=== PATIENT | female | born 1980 | race Two or more races ===

== ENCOUNTER 2019-10-28 16:43 | Inpatient (IN) | payer OTHER ==
--- NOTE | 2019-10-28 17:12 | PDOC ---
Rapid Medical Evaluation Medical Evaluation: Allergies Allergy/AdvReac Type Severity Reaction Status Date / Time No Known Allergies Allergy Verified 03/01/14 07:16 Vital Signs Temp Pulse Resp BP Pulse Ox 98 F 85 20 113/102 H 100 10/28/19 16:44 10/28/19 16:44 10/28/19 16:44 10/28/19 16:44 10/28/19 16:44 10/28/19 16:52 HPI: The patient is a 39 year old female with no pmhx presents with c/o of generalized chest and upper back pain x 3 days. States has associated generalized body pain. Chest pain is 6/10, worse on the right side with taking a breath. She has been taking antibx (not prescribed), which she bought at the store and took advil lost does at 3 pm without relief of symptoms. Denies exposure to suspected, or confirmed] COVID-19. Denies symptoms of fever, chills, dry cough, SOB, anorexia, or diarrhea, nausea, vomiting. Has not eaten today due to the pain. Famx hx neg for CVA/[place]/PE/DVT. ROS: (+) chest pain, (-) difficulty breathing, (-) shortness of breath, (-) lightheadedness, (-) dizziness, (-) nausea, (-) vomiting and diarrhea. Other 12 point ROS reviewed and negative. Exam: General: NAD, Well-Appearing, Awake, Alert Oriented x3. Vital signs stable. ENT: No rhinorrhea or nasal congestion. Neck: FROM, no midline tenderness. Lungs: Clear to auscultation bilaterally without wheezes, rhonchi or rales. Normal excursion. Patient is able to speak in full sentences. Heart: HR: Regular rhythm, S1-S2 present, no murmurs rubs or gallops. Abdomen: Non-distended, (+) RUQ tenderness MSK/Extremities: No decrease ROM, No obvious deformities. No obvious cyanosis noted. Neuro: Normal Gait, Cranial Nerves II through XII Grossly Intact. Skin: No obvious rashes, bruising. Color Normal Appearing. Assessment/Plan: The patient is a 39 year old female with no pmhx presents with c/o of generalized chest and upper back pain x 3 days. States has associated generalized body pain, with no known COVID exposure. Patient does not meet testing criteria at this time. R/O pneumonia, RUQ tenderness r/o cholelithiasis labs, ekg, cxr poss US if indicated percocet for pain reassess vertical for further eval
[2019-10-28 17:28] VITALS: BMI 29.5
[2019-10-28 18:00] LABS: HEMATOCRIT 41.9 % (32.4-45.2); MCH 29.5 pg (25.7-33.7); MCHC 33.5 g/dl (32.0-36.0); MEAN PLT VOLUME 9.3 fl (7.5-11.1); PLATELET COUNT 226 K/MM3 (134-434); RBC 4.76 M/mm3 (3.60-5.2); RDW 13.2 % (11.6-15.6); WHITE BLOOD COUNT 10.9 K/mm3 (4.0-10.0)
--- NOTE | 2019-10-28 18:05 | PDOC ---
History of Present Illness - General Chief Complaint: Pain Stated Complaint: SOB - History of Present Illness Initial Comments: 10/28/19 18:05 The patient is a 39 year old female with no pmhx presents with c/o of generalized chest and upper back pain x 3 days. States has associated generalized body pain. Chest pain is 6/10, worse on the right side with taking a breath. She has been taking antibx (not prescribed), which she bought at the store and took advil lost does at 3 pm without relief of symptoms. Denies exposure to suspected, or confirmed] COVID-19. Denies symptoms of fever, chills, dry cough, SOB, anorexia, or diarrhea, nausea, vomiting. Has not eaten today due to the pain. Famx hx neg for CVA/CO/PE/DVT. ROS: (+) chest pain, (-) difficulty breathing, (-) shortness of breath, (-) lightheadedness, (-) dizziness, (-) nausea, (-) vomiting and diarrhea. Other 12 point ROS reviewed and negative. Exam: General: NAD, Well-Appearing, Awake, Alert Oriented x3. Vital signs stable. ENT: No rhinorrhea or nasal congestion. Neck: FROM, no midline tenderness. Lungs: Clear to auscultation bilaterally without wheezes, rhonchi or rales. Normal excursion. Patient is able to speak in full sentences. Heart: HR: Regular rhythm, S1-S2 present, no murmurs rubs or gallops. Abdomen: Non-distended, (+) RUQ tenderness MSK/Extremities: No decrease ROM, No obvious deformities. No obvious cyanosis noted. Neuro: Normal Gait, Cranial Nerves II through XII Grossly Intact. Skin: No obvious rashes, bruising. Color Normal Appearing. Past History - Past Medical History Allergies/Adverse Reactions: Allergies Allergy/AdvReac Type Severity Reaction Status Date / Time No Known Allergies Allergy Verified 03/01/14 07:16 Home Medications: Ambulatory Orders Vitamins (Sjr) - 1 tab PO DAILY 09/23/14 Acetaminophen [Tylenol .Regular Strength -] 650 mg PO Q4H PRN #20 tablet 09/28/14 Ibuprofen [Motrin -] 600 mg PO Q4H PRN #20 tablet 09/28/14 Asthma: No Cancer: No Cardiac Disorders: No Diabetes: No HTN: No Seizures: No Thyroid Disease: No - Reproductive History (#): 2 Para: 1 - Psycho Social/Smoking Cessation Hx Smoking History: Never smoked Have you smoked in the past 12 months: No Hx Alcohol Use: No Drug/Substance Use Hx: No Substance Use Type: None Hx Substance Use Treatment: No *Physical Exam - Vital Signs Last Vital Signs Temp Pulse Resp BP Pulse Ox 98.0 F 85 18 113/102 H 100 10/28/19 17:23 10/28/19 17:23 10/28/19 17:23 10/28/19 17:23 10/28/19 17:23 ED Treatment Course - LABORATORY CBC & Chemistry Diagram: 10/28/19 17:17 10/28/19 17:19 - ADDITIONAL ORDERS Additional order review: 10/28/19 17:17 RBC 4.76 MCV 88.0 MCHC 33.5 RDW 13.2 D MPV 9.3 - RADIOLOGY Radiology Studies Ordered: Category Date Time Status CHEST X-RAY PORTABLE* [RAD] Stat Radiology 10/28/19 16:54 Ordered Medical Decision Making - Medical Decision Making 10/28/19 18:05 Assessment/Plan: The patient is a 39 year old female with no pmhx presents with c/o of generalized chest and upper back pain x 3 days. States has associated generalized body pain, with no known COVID exposure. Patient does not meet testing criteria at this time. R/O pneumonia, RUQ tenderness r/o cholelithiasis labs, ekg, cxr poss US if indicated percocet for pain reassess EKG: SR rate 72, LAD, LVH, (-) ST-T wave changes POCUS GB show (+) stone and sludge, nl GB wall 10/28/19 19:16 Laboratory Tests 10/28/19 10/28/19 17:17 17:19 WBC 10.9 H Hgb 14.0 Hct 41.9 Plt Count 226 D Sodium 139 Potassium 4.0 Chloride 104 Carbon Dioxide 27 Anion Gap 8 BUN 12.2 Creatinine 0.7 Est GFR (CKD-EPI)NonAf 108.38 Random Glucose 117 H Total Bilirubin 0.9 AST 207 H ALT 167 H Alkaline Phosphatase 138 H Lipase 157 Beta HCG, Quant < 1.0 patient sent for official US. Case d/w Dr. Maya will see the patient in AM. 10/28/19 20:06 US reported Gall stone with mild GB wall thicking Discharge - Discharge Information Problems reviewed: Yes Clinical Impression/Diagnosis: Abdominal pain Qualifiers: Abdominal location: right upper quadrant Qualified Code(s): R10.11 - Right upper quadrant pain Cholelithiasis Qualifiers: Cholelithiasis location: gallbladder and bile duct Cholecystitis presence: without cholecystitis Biliary obstruction: with biliary obstruction Qualified Code(s): K80.71 - Calculus of gallbladder and bile duct without cholecystitis with obstruction - Admission Yes - Follow up/Referral - Patient Discharge Instructions - Post Discharge Activity
[2019-10-28 18:31] LABS: ALBUMIN 3.9 g/dl (3.4-5.0); ALK PHOS 138 U/L (45-117); ANION GAP 8 MMOL/L (8-16); BILIRUBIN,TOTAL 0.9 mg/dL (0.2-1); BLOOD UREA NITROGEN 12.2 mg/dL (7-18); CALCIUM 9.1 mg/dL (8.5-10.1); CHLORIDE 104 mmol/L (98-107); CO2 27 mmol/L (21-32); CREATININE 0.7 mg/dL (0.55-1.3); GLUCOSE,RANDOM 117 mg/dL (74-106); LIPASE 157 U/L (73-393); SGOT/AST 207 U/L (15-37); SGPT/ALT 167 U/L (13-61); SODIUM 139 mmol/L (136-145); TOT PROT 7.8 g/dl (6.4-8.2)
--- NOTE | 2019-10-28 19:19 | PDOC ---
*Physical Exam - Vital Signs Last Vital Signs Temp Pulse Resp BP Pulse Ox 98.0 F 85 18 113/102 H 100 10/28/19 17:23 10/28/19 17:23 10/28/19 17:23 10/28/19 17:23 10/28/19 17:23 - Physical Exam 10/28/19 19:14 awake alert lungs clear bilat heart rrr no mrg abd soft mild ruq ttp. neg ocampo's no rebound no guarding. no flank tendernees. ext wwp. General Appearance: Yes: Appropriately Dressed ED Treatment Course - LABORATORY CBC & Chemistry Diagram: 10/28/19 17:17 10/28/19 17:19 - ADDITIONAL ORDERS Additional order review: Laboratory Results 10/28/19 17:19 Sodium 139 Potassium 4.0 Chloride 104 Carbon Dioxide 27 Anion Gap 8 BUN 12.2 Creatinine 0.7 Est GFR (CKD-EPI)AfAm 125.61 Est GFR (CKD-EPI)NonAf 108.38 Random Glucose 117 H Calcium 9.1 Total Bilirubin 0.9 AST 207 H ALT 167 H Alkaline Phosphatase 138 H Total Protein 7.8 Albumin 3.9 Lipase 157 Beta HCG, Quant < 1.0 10/28/19 17:17 RBC 4.76 MCV 88.0 MCHC 33.5 RDW 13.2 D MPV 9.3 - Medications Given in the ED: ED Medications Discontinued Medications Generic Name Dose Route Start Last Admin Trade Name Freq PRN Reason Stop Dose Admin Oxycodone/Acetaminophen 1 combo 10/28/19 18:00 10/28/19 18:26 Percocet 5/325 - PO 10/28/19 18:01 1 combo ONCE ONE Administration Medical Decision Making - Medical Decision Making 10/28/19 19:15 39 yo F here with ruq pain. pain worse with eating. now constant. no n/v no fever or chills. on my exam pt ttp ruq. pt seen and examined with CESILIA Benites, agree with plan focused ED us ruq performed. dilated CBD noted 4.5 upper limits normal pt age. noted stones, one in neck. nonmobile. small polyp noted anterior gallbladder wall. no pericholecystic fluid. neg sonographic's ocampo impression: cholelithiasis with dilated CBD, small anterior polyp noted. d/w dr fong surgeon, will see patient in hospital. consult placed. Discharge - Discharge Information Problems reviewed: Yes Clinical Impression/Diagnosis: Cholelithiasis - Admission Yes - Follow up/Referral - Patient Discharge Instructions - Post Discharge Activity
--- NOTE | 2019-10-28 19:39 | HP ---
CHIEF COMPLAINT:abd pain PCP:none HISTORY OF PRESENT ILLNESS: patient is a 39 year old female with no pmhx presents with c/o of generalized chest and upper back pain x 3 days. States has associated generalized body pain. Chest pain is 6/10, worse on the right side with taking a breath. She has been taking antibx (not prescribed), which she bought at the store and took advil lost does at 3 pm without relief of symptoms. Denies exposure to suspected, or confirmed] COVID-19. Denies symptoms of fever, chills, dry cough, SOB, anorexia, or diarrhea, nausea, vomiting. Has not eaten today due to the pain. pt is comoran speaking pt currently denies pain, reports "pain medicine helped" ER course was notable for: (1) AST/ALT 207/167 (2) WBC 10.9 (3) US CBD Recent Travel: PAST MEDICAL HISTORY: none PAST SURGICAL HISTORY: Family History: Fam hx neg for CVA/[place]/PE/DVT. Social History: Smoking:denies Alcohol:denies Drugs: denies Allergies No Known Allergies Allergy (Verified 03/01/14 07:16) HOME MEDICATIONS: Home Medications Medication Instructions Recorded Vitamins (Sjr) - 1 tab PO DAILY 09/23/14 Acetaminophen [Tylenol .Regular 650 mg PO Q4H PRN #20 tablet 09/28/14 Strength -] Ibuprofen [Motrin -] 600 mg PO Q4H PRN #20 tablet 09/28/14 REVIEW OF SYSTEMS CONSTITUTIONAL: Absent: fever, chills, diaphoresis, generalized weakness, malaise, loss of appetite, weight change HEENT: Absent: rhinorrhea, nasal congestion, throat pain, throat swelling, difficulty swallowing, mouth swelling, ear pain, eye pain, visual changes CARDIOVASCULAR: Absent: chest pain, syncope, palpitations, irregular heart rate, lightheadedness, peripheral edema RESPIRATORY: Absent: cough, shortness of breath, dyspnea with exertion, orthopnea, wheezing, stridor, hemoptysis GASTROINTESTINAL: +Abd pain, Absent: abdominal distension, nausea, vomiting, diarrhea, constipation, melena, hematochezia GENITOURINARY: Absent: dysuria, frequency, urgency, hesitancy, hematuria, flank pain, genital pain MUSCULOSKELETAL: Absent: myalgia, arthralgia, joint swelling, back pain, neck pain SKIN: Absent: rash, itching, pallor HEMATOLOGIC/IMMUNOLOGIC: Absent: easy bleeding, easy bruising, lymphadenopathy, frequent infections ENDOCRINE: Absent: unexplained weight gain, unexplained weight loss, heat intolerance, cold intolerance NEUROLOGIC: Absent: headache, focal weakness or paresthesias, dizziness, unsteady gait, seizure, mental status changes, bladder or bowel incontinence PSYCHIATRIC: Absent: anxiety, depression, suicidal or homicidal ideation, hallucinations. PHYSICAL EXAMINATION Vital Signs - 24 hr 10/28/19 10/28/19 16:44 17:23 Temperature 98 F 98.0 F Pulse Rate 85 85 Respiratory 20 18 Rate Blood Pressure 113/102 H 113/102 H O2 Sat by Pulse 100 100 Oximetry (%) GENERAL: Awake, alert, and fully oriented, in no acute distress. HEAD: Normal with no signs of trauma. EYES: Pupils equal, round and reactive to light, extraocular movements intact, sclera anicteric, conjunctiva clear. No lid lag. EARS, NOSE, THROAT: Ears normal, nares patent, oropharynx clear without exudates. Moist mucous membranes. NECK: Normal range of motion, supple without lymphadenopathy, JVD, or masses. LUNGS: Breath sounds equal, clear to auscultation bilaterally. No wheezes, and no crackles. No accessory muscle use. HEART: Regular rate and rhythm, normal S1 and S2 without murmur, rub or gallop. ABDOMEN: Soft, nontender, not distended, normoactive bowel sounds, no guarding, no rebound, no masses. No hepatomegaly or splenomegaly. MUSCULOSKELETAL: Normal range of motion at all joints. No bony deformities or tenderness. No CVA tenderness. UPPER EXTREMITIES: 2+ pulses, warm, well-perfused. No cyanosis. No clubbing. No peripheral edema. LOWER EXTREMITIES: 2+ pulses, warm, well-perfused. No calf tenderness. No peripheral edema. NEUROLOGICAL: Cranial nerves II-XII intact. Normal speech. Normal gait. PSYCHIATRIC: Cooperative. Good eye contact. Appropriate mood and affect. SKIN: Warm, dry, normal turgor, no rashes or lesions noted, normal capillary refill. Laboratory Results - last 24 hr 10/28/19 10/28/19 17:17 17:19 WBC 10.9 H RBC 4.76 Hgb 14.0 Hct 41.9 MCV 88.0 MCH 29.5 MCHC 33.5 RDW 13.2 D Plt Count 226 D MPV 9.3 Sodium 139 Potassium 4.0 Chloride 104 Carbon Dioxide 27 Anion Gap 8 BUN 12.2 Creatinine 0.7 Est GFR (CKD-EPI)AfAm 125.61 Est GFR (CKD-EPI)NonAf 108.38 Random Glucose 117 H Calcium 9.1 Total Bilirubin 0.9 AST 207 H ALT 167 H Alkaline Phosphatase 138 H Total Protein 7.8 Albumin 3.9 Lipase 157 Beta HCG, Quant < 1.0 ASSESSMENT/PLAN: Germaine Victor is a 39 year old female with no pmhx presents with c/o of generalized chest and upper back pain x 3 days admitted for Admitting Diagnosis Cholelithiasis #Cholelithiasis -Surgery consult- will see in AM -US abd GB distended with CBD -IVF -pain mgt -NPO midnight -EKG- NSR -no covid exposure- was not swabbed in ED #Transaminitis due CBD -repeat LFT in AM -US abd- fatty liver Full Code Dispo: requires inpatient treatment Visit type - Emergency Visit Emergency Visit: Yes Care time: The patient presented to the Emergency Department on the above date and was hospitalized for further evaluation of their emergent condition. - New Patient This patient is new to me today: Yes Date on this admission: 10/28/19 - Critical Care Critical Care patient: No
[2019-10-29] MEDS: SODIUM CHLORIDE 1,000 ML IV SCH ×4 (02:16→20:00)
[2019-10-29] MEDS ORDERED: oxyCODONE HCL 5 MG TABLET PO PRN ×2 (07:35→15:24)
--- NOTE | 2019-10-29 08:02 | CONSULT ---
- Consultation REQUESTING PROVIDER: CONSULT REQUEST: We have been asked to surgically evaluate this patient for cholelithiasis. PCP:Kasi Velasquez MD HISTORY OF PRESENT ILLNESS: The patient is a 39 yo female who presented to the ER with complaints of generalized pain especially in her upper back/right side. She has abd pain in epigatric/RUQ. She denies fever/chills or SOB. Pt with nausea no emesis, but pain and nausea with eating. She may have been having intermittent pain in the past but was never told that she has gallstones. This episode, the pain was constant and she came to the ER for evaluation of her symptoms. Currently she denies any SOB, CP. PMHx: none PSHx: C section x2 Home Medications Medication Instructions Recorded Vitamins (Sjr) - 1 tab PO DAILY 09/23/14 Acetaminophen [Tylenol .Regular 650 mg PO Q4H PRN #20 tablet 09/28/14 Strength -] Ibuprofen [Motrin -] 600 mg PO Q4H PRN #20 tablet 09/28/14 Allergies Allergy/AdvReac Type Severity Reaction Status Date / Time No Known Allergies Allergy Verified 03/01/14 07:16 REVIEW OF SYSTEMS: CONSTITUTIONAL: Absent: fever, chills Present: malaise CARDIOVASCULAR: Absent: chest pain RESPIRATORY: Absent: cough, shortness of breath GASTROINTESTINAL: Present: abdominal pain with deep inspiration Absent: nausea, vomiting PHYSICAL EXAM: GENERAL: Awake, alert, and fully oriented, in no acute distress. HEAD: Normal with no signs of trauma. EYES: sclera anicteric, conjunctiva clear. LUNGS: Clear to auscultation bilat anteriorly. No wheezes, and no crackles. No accessory muscle use. HEART: Regular rate and rhythm. ABDOMEN: Soft, mild RUQ tender with palpation, not distended LOWER EXTREMITIES: No calf tenderness. No peripheral edema. NEUROLOGICAL: Normal speech, gait not observed. PSYCH: Cooperative. Good eye contact. Appropriate mood and affect. Vital Signs Temperature 98 F 10/29/19 06:00 Pulse Rate 92 H 10/29/19 06:00 Respiratory Rate 18 10/29/19 06:00 Blood Pressure 108/58 L 10/29/19 06:00 O2 Sat by Pulse Oximetry (%) 100 10/29/19 02:14 Lab Results WBC 10.9 K/mm3 (4.0-10.0) H 10/28/19 17:17 RBC 4.76 M/mm3 (3.60-5.2) 10/28/19 17:17 Hgb 14.0 GM/dL (10.7-15.3) 10/28/19 17:17 Hct 41.9 % (32.4-45.2) 10/28/19 17:17 MCV 88.0 fl (80-96) 10/28/19 17:17 MCHC 33.5 g/dl (32.0-36.0) 10/28/19 17:17 RDW 13.2 % (11.6-15.6) D 10/28/19 17:17 Plt Count 226 K/MM3 (134-434) D 10/28/19 17:17 Sodium 139 mmol/L (136-145) 10/28/19 17:19 Potassium 4.0 mmol/L (3.5-5.1) 10/28/19 17:19 Chloride 104 mmol/L (98-107) 10/28/19 17:19 Carbon Dioxide 27 mmol/L (21-32) 10/28/19 17:19 Anion Gap 8 MMOL/L (8-16) 10/28/19 17:19 BUN 12.2 mg/dL (7-18) 10/28/19 17:19 Creatinine 0.7 mg/dL (0.55-1.3) 10/28/19 17:19 Random Glucose 117 mg/dL (74-106) H 10/28/19 17:19 Calcium 9.1 mg/dL (8.5-10.1) 10/28/19 17:19 US: gallstones with 1.5 cm stone near the GB neck Problem List - Problems (1) Cholelithiasis Assessment/Plan: pt with biliary colic and is agreeable to surgery. Can plan for surgery once COVID testing is negative. Continue npo LFTS improved today and would continue to trend IVF while npo Pt seen today by myself and Dr. Maya, will continue to follow the patient and plan for lap mikael on Friday if LFTS improved and COVID negative. Problems reviewed: Yes Code(s): K80.20 - CALCULUS OF GALLBLADDER W/O CHOLECYSTITIS W/O OBSTRUCTION Qualifiers: Cholelithiasis location: gallbladder and bile duct Cholecystitis presence: without cholecystitis Biliary obstruction: with biliary obstruction Qualified Code(s): K80.71 - Calculus of gallbladder and bile duct without cholecystitis with obstruction Visit type - Case Type Case Type: ED Admission - Emergency Emergency Visit: Yes ED Registration Date: 10/28/19 Care time: The patient presented to the Emergency Department on the above date and was hospitalized for further evaluation of their emergent condition. - New patient This patient is new to me today: Yes Date on this admission: 10/29/19 - Critical Care Critical Care patient: No
[2019-10-29 08:05] LABS: HEMATOCRIT 38.3 % (32.4-45.2); HEMOGLOBIN 12.9 GM/dL (10.7-15.3); MCH 29.5 pg (25.7-33.7); MCHC 33.7 g/dl (32.0-36.0); MEAN CELL VOLUME 87.6 fl (80-96); PLATELET COUNT 202 K/MM3 (134-434); RBC 4.37 M/mm3 (3.60-5.2); RDW 13.3 % (11.6-15.6); WHITE BLOOD COUNT 7.3 K/mm3 (4.0-10.0)
[2019-10-29 08:14] LABS: INR 1.11 (0.83-1.09); PROTHROMBIN TIME (PATIENT) 13.1 SEC (9.7-13.0)
[2019-10-29 08:39] LABS: ALBUMIN 3.5 g/dl (3.4-5.0); BILIRUBIN,TOTAL 0.8 mg/dL (0.2-1); BLOOD UREA NITROGEN 11.3 mg/dL (7-18); CALCIUM 8.7 mg/dL (8.5-10.1); CREATININE 0.7 mg/dL (0.55-1.3); MAGNESIUM 2.2 mg/dL (1.8-2.4)
[2019-10-29] MEDS ORDERED: FLU VACCINE QUAD 60 MCG/0.5 ML (MDV 19-20) IM ONE (10:00)
--- NOTE | 2019-10-29 13:07 | EKG ---
Test Reason : Blood Pressure : / mmHG Vent. Rate : 061 BPM Atrial Rate : 061 BPM P-R Int : 168 ms QRS Dur : 094 ms QT Int : 448 ms P-R-T Axes : 011 -12 -01 degrees QTc Int : 450 ms NORMAL SINUS RHYTHM MODERATE VOLTAGE CRITERIA FOR LVH, MAY BE NORMAL VARIANT ABNORMAL ECG Confirmed by KATHRINE PARMAR MD ([id number]) on 10/29/2019 1:07:34 PM Referred By: Confirmed By:KATHRINE PARMAR MD
--- NOTE | 2019-10-29 13:11 | EKG ---
Test Reason : Blood Pressure : / mmHG Vent. Rate : 072 BPM Atrial Rate : 072 BPM P-R Int : 176 ms QRS Dur : 096 ms QT Int : 416 ms P-R-T Axes : 040 -02 013 degrees QTc Int : 455 ms NORMAL SINUS RHYTHM MINIMAL VOLTAGE CRITERIA FOR LVH, MAY BE NORMAL VARIANT NO PREVIOUS ECGS AVAILABLE Confirmed by KATHRINE PARMAR MD ([id number]) on 10/29/2019 1:10:28 PM Referred By: Confirmed By:KATHRINE PARMAR MD
--- NOTE | 2019-10-29 14:38 | PN ---
Teaching Attending Note Name of Resident: Armaan Kramer ATTENDING PHYSICIAN STATEMENT I saw and evaluated the patient. I reviewed the resident's note and discussed the case with the resident. I agree with the resident's findings and plan as documented. SUBJECTIVE: Pt reports pain improved. Seen by surgery. Agreeable to cholecystectomy, plan edel for Friday pending negative COVID test OBJECTIVE: Last Vital Signs Temp Pulse Resp BP Pulse Ox 98 F 92 H 18 108/58 L 98 10/29/19 06:00 10/29/19 06:00 10/29/19 09:00 10/29/19 06:00 10/29/19 09:00 PE: per resident note Labs: reviewed Imaging Reviewed ASSESSMENT AND PLAN: Germaine Victor is a 39 year old female with no pmhx presents with c/o of ge neralized chest and upper back pain x 3 days. Found to have cholelithiasis with borderline cholecystitis. #Symptomatic Cholelithiasis -Agreeable to cholecystectomy, planned for Friday pending negative COVID test -pain control, fluids -AST decreasing -Diet as tolerated DVTppx: pt ambulatory, low risk
--- NOTE | 2019-10-29 15:25 | PN ---
Physical Exam: SUBJECTIVE: Patient seen and examined. Afebrile and asymptomatic. No acute events overnight. Pt reports pain in the RUQ. No BM or urination. OBJECTIVE: Vital Signs Period Temp Pulse Resp BP Sys/[place] Pulse Ox Last 24 Hr 97.6 F-98.0 F 60-92 16-20 108-126/58-102 98-100 GENERAL: The patient is awake, alert, and fully oriented, in mild distress EYES: PERRL, extraocular movements intact, No ptosis. ENT: moist mucous membranes. LUNGS: Breath sounds equal, clear to auscultation bilaterally, no wheezes, no crackles HEART: Regular rate and rhythm, S1, S2 without murmur, rub or gallop. ABDOMEN: soft, RUQ tenderness, guarding+ rebound tenderness+, BS decreased. EXTREMITIES: 2+ pulses, warm, well-perfused, no edema. PSYCH: Normal mood, normal affect. SKIN: Warm, dry, normal turgor, Laboratory Results - last 24 hr 10/28/19 10/28/19 10/29/19 17:17 17:19 06:30 WBC 10.9 H 7.3 RBC 4.76 4.37 Hgb 14.0 12.9 Hct 41.9 38.3 MCV 88.0 87.6 MCH 29.5 29.5 MCHC 33.5 33.7 RDW 13.2 D 13.3 Plt Count 226 D 202 MPV 9.3 9.0 PT with INR INR Sodium 139 Potassium 4.0 Chloride 104 Carbon Dioxide 27 Anion Gap 8 BUN 12.2 Creatinine 0.7 Est GFR (CKD-EPI)AfAm 125.61 Est GFR (CKD-EPI)NonAf 108.38 Random Glucose 117 H Calcium 9.1 Magnesium Total Bilirubin 0.9 AST 207 H ALT 167 H Alkaline Phosphatase 138 H Total Protein 7.8 Albumin 3.9 Lipase 157 Beta HCG, Quant < 1.0 10/29/19 10/29/19 06:30 06:30 WBC RBC Hgb Hct MCV MCH MCHC RDW Plt Count MPV PT with INR 13.10 H INR 1.11 H Sodium 139 Potassium 4.0 Chloride 105 Carbon Dioxide 29 Anion Gap 5 L BUN 11.3 Creatinine 0.7 Est GFR (CKD-EPI)AfAm 125.61 Est GFR (CKD-EPI)NonAf 108.38 Random Glucose 86 Calcium 8.7 Magnesium 2.2 Total Bilirubin 0.8 AST 105 H ALT 167 H Alkaline Phosphatase 125 H Total Protein 7.0 Albumin 3.5 Lipase Beta HCG, Quant Active Medications Generic Name Dose Route Start Last Admin Trade Name Gregorioq PRN Reason Stop Dose Admin Sodium Chloride 1,000 mls @ 75 mls/hr 10/28/19 19:45 10/29/19 02:22 Normal Saline - IV 75 mls/hr ASDIR HEIDY Administration Oxycodone HCl 5 mg 10/29/19 07:35 Roxicodone - PO ONCE PRN PAIN LEVEL 6-10 ASSESSMENT/PLAN: 39 y/o F, with no pmhx presents with c/o of generalized chest, abdominal and upper back pain x 3 days admitted for bilary colic #Biliary colic 2/2 to Cholelithiasis US: gallstones with 1.5 cm stone near the GB neck Surgery consult- appreciate consult- tentative surgery for Friday, upon receiving COVID negative test- pending cont IVF pain mgt- oxy 5 q6 prn NPO midnight Covid swab sent #Transaminitis due CBD repeat LFT in AM US abd- fatty liver vs hepatocellular disease, Gallstone next to GB neck 1.5cm, bedside US showing CBD dilation of 4.5 mm #DVT ppx hold FEN monitor lytes IVF at 75 NPO Dispo: cont IVF, npo, surgery for friday, pending covid test Visit type - Emergency Visit Emergency Visit: Yes ED Registration Date: 10/28/19 Care time: The patient presented to the Emergency Department on the above date and was hospitalized for further evaluation of their emergent condition. - New Patient This patient is new to me today: Yes Date on this admission: 10/29/19 - Critical Care Critical Care patient: No - Discharge Referral Referred to [facility] Med P.C.: No ATTENDING PHYSICIAN STATEMENT I saw and evaluated the patient. I reviewed the resident's note and discussed the case with the resident. I agree with the resident's findings and plan as documented. SUBJECTIVE: OBJECTIVE: ASSESSMENT AND PLAN:
[2019-10-30] MEDS: SODIUM CHLORIDE 1,000 ML IV SCH ×3 (03:35→23:00)
[2019-10-30 06:55] LABS: BASO % 0.3 % (0-2.0); HEMATOCRIT 36.4 % (32.4-45.2); HEMOGLOBIN 12.6 GM/dL (10.7-15.3); LYMPH % 26.3 % (8-40); MCH 30.3 pg (25.7-33.7); MCHC 34.5 g/dl (32.0-36.0); MEAN CELL VOLUME 87.7 fl (80-96); MEAN PLT VOLUME 8.6 fl (7.5-11.1); MONO % 7.1 % (3.8-10.2); NEUT % 63.3 % (42.8-82.8); PLATELET COUNT 184 K/MM3 (134-434); RBC 4.15 M/mm3 (3.60-5.2); RDW 13.2 % (11.6-15.6)
[2019-10-30 07:20] LABS: ALBUMIN 3.3 g/dl (3.4-5.0); BILIRUBIN,DIRECT 0.2 mg/dL (0.0-0.2); BILIRUBIN,TOTAL 0.6 mg/dL (0.2-1); BLOOD UREA NITROGEN 13.9 mg/dL (7-18); CALCIUM 8.4 mg/dL (8.5-10.1); CREATININE 0.7 mg/dL (0.55-1.3); MAGNESIUM 2.1 mg/dL (1.8-2.4); PHOSPHOROUS 3.7 mg/dL (2.5-4.9); POTASSIUM 3.8 mmol/L (3.5-5.1); TOT PROT 6.5 g/dl (6.4-8.2)
--- NOTE | 2019-10-30 10:51 | PN ---
Progress Note (short form) - Note Progress Note: Attending Surgeon Minimal c/o pain VSS AF abdo-soft; minimal if any tenderness; o/w negative IMP: biliary colic; acute cholecystitis PLAN: Clear liquid diet; continue present tx.; lap mikael possible open 11/01/2019 pending negative COVID-19 status; d/w the patient in Latvian. David Maya MD FACS
--- NOTE | 2019-10-30 14:33 | PN ---
Physical Exam: SUBJECTIVE: Patient seen and examined. Asymptomatic and afebrile. No overnight event. Discussed with pt over the cryacom/band salvager about her scheduled surgery for saturday 10/21. OBJECTIVE: Vital Signs Period Temp Pulse Resp BP Sys/Mancilla Pulse Ox Last 24 Hr 97.7 F-98.2 F 61-77 18-20 101-111/49-69 99 GENERAL: The patient is awake, alert, and fully oriented, in mild distress EYES: PERRL, extraocular movements intact, No ptosis. ENT: moist mucous membranes. LUNGS: Breath sounds equal, clear to auscultation bilaterally, no wheezes, no crackles HEART: Regular rate and rhythm, S1, S2 without murmur, rub or gallop. ABDOMEN: soft, RUQ tenderness, guarding+, no rebound tenderness, BS decreased. Improved EXTREMITIES: 2+ pulses, warm, well-perfused, no edema. PSYCH: Normal mood, normal affect. SKIN: Warm, dry, normal turgor, Laboratory Results - last 24 hr 10/29/19 10/30/19 10/30/19 12:30 06:35 06:35 WBC 8.0 RBC 4.15 Hgb 12.6 Hct 36.4 MCV 87.7 MCH 30.3 MCHC 34.5 RDW 13.2 Plt Count 184 MPV 8.6 Absolute Neuts (auto) 5.1 Neutrophils % 63.3 Lymphocytes % 26.3 D Monocytes % 7.1 Eosinophils % 3.0 Basophils % 0.3 Nucleated RBC % 0 Sodium 139 Potassium 3.8 Chloride 107 Carbon Dioxide 25 Anion Gap 6 L BUN 13.9 Creatinine 0.7 Est GFR (CKD-EPI)AfAm 125.61 Est GFR (CKD-EPI)NonAf 108.38 Random Glucose 81 Calcium 8.4 L Phosphorus 3.7 Magnesium 2.1 Total Bilirubin 0.6 Direct Bilirubin 0.2 AST 40 H ALT 106 H Alkaline Phosphatase 104 Total Protein 6.5 Albumin 3.3 L COVID-19 (BLAYNE) Not detected Active Medications Generic Name Dose Route Start Last Admin Trade Name Freq PRN Reason Stop Dose Admin Sodium Chloride 1,000 mls @ 75 mls/hr 10/28/19 19:45 10/30/19 03:35 Normal Saline - IV 75 mls/hr ASDIR HEIDY Administration Oxycodone HCl 5 mg 10/29/19 15:24 Roxicodone - PO Q6H PRN PAIN LEVEL 7 - 10 ASSESSMENT/PLAN: 39 y/o F, with no pmhx presents with c/o of generalized chest, abdominal and upper back pain x 3 days admitted for bilary colic #Biliary colic 2/2 to Cholelithiasis US: gallstones with 1.5 cm stone near the GB neck LFTs improving- stone likely passed Surgery consult- appreciate consult- tentative lap mikael surgery for Friday cont IVF pain mgt- oxy 5 q6 prn NPO midnight 10/31 Clear liquid diet for now Covid negative #Transaminitis due CBD LFTs improving US abd- fatty liver vs hepatocellular disease, Gallstone next to GB neck 1.5cm, bedside US showing CBD dilation of 4.5 mm #DVT ppx hold FEN monitor lytes IVF at 75 clear liquid diet, NPO after midnight on 10/31 Dispo: cont IVF, surgery for friday Visit type - Emergency Visit Emergency Visit: Yes ED Registration Date: 10/28/19 Care time: The patient presented to the Emergency Department on the above date and was hospitalized for further evaluation of their emergent condition. - New Patient This patient is new to me today: Yes Date on this admission: 10/30/19 - Critical Care Critical Care patient: No - Discharge Referral Referred to [facility] Med P.C.: No ATTENDING PHYSICIAN STATEMENT I saw and evaluated the patient. I reviewed the resident's note and discussed the case with the resident. I agree with the resident's findings and plan as documented. SUBJECTIVE: OBJECTIVE: ASSESSMENT AND PLAN:
--- NOTE | 2019-10-30 15:45 | PN ---
Teaching Attending Note Name of Resident: Armaan Kramer ATTENDING PHYSICIAN STATEMENT I saw and evaluated the patient. I reviewed the resident's note and discussed the case with the resident. I agree with the resident's findings and plan as documented. SUBJECTIVE: Minor RUQ pain. No rebound. Start clears. Planned for Friday pending negative COVID test OBJECTIVE: Last Vital Signs Temp Pulse Resp BP Pulse Ox 97.8 F 69 20 105/58 L 99 10/30/19 13:29 10/30/19 13:10/30/19 13:10/30/19 13:10/29/19 21:00 PE: per resident note Labs: reviewed Imaging Reviewed ASSESSMENT AND PLAN: Germaine Victor is a 39 year old female with no pmhx presents with c/o of generalized chest and upper back pain x 3 days. Found to have cholelithiasis with borderline cholecystitis. #Symptomatic Cholelithiasis -Agreeable to cholecystectomy, planned for Friday pending negative COVID test -pain control, fluids -AST decreasing -Clears DVTppx: pt ambulatory, low risk
[2019-10-31] MEDS: SODIUM CHLORIDE 1,000 ML IV SCH ×2 (06:06→21:14)
[2019-10-31 08:25] LABS: BASO % 0.4 % (0-2.0); EOS % 4.2 % (0-4.5); HEMATOCRIT 35.6 % (32.4-45.2); HEMOGLOBIN 12.2 GM/dL (10.7-15.3); LYMPH % 30.6 % (8-40); MCH 29.7 pg (25.7-33.7); MCHC 34.1 g/dl (32.0-36.0); MEAN CELL VOLUME 87.2 fl (80-96); MEAN PLT VOLUME 9.3 fl (7.5-11.1); MONO % 8.1 % (3.8-10.2); NEUT % 56.7 % (42.8-82.8); PLATELET COUNT 166 K/MM3 (134-434); RBC 4.09 M/mm3 (3.60-5.2); WHITE BLOOD COUNT 6.8 K/mm3 (4.0-10.0)
[2019-10-31 08:35] LABS: ALBUMIN 3.2 g/dl (3.4-5.0); BILIRUBIN,TOTAL 0.5 mg/dL (0.2-1); BLOOD UREA NITROGEN 9.9 mg/dL (7-18); CALCIUM 8.1 mg/dL (8.5-10.1); CREATININE 0.6 mg/dL (0.55-1.3); MAGNESIUM 2.2 mg/dL (1.8-2.4); PHOSPHOROUS 3.7 mg/dL (2.5-4.9); POTASSIUM 3.8 mmol/L (3.5-5.1); TOT PROT 6.4 g/dl (6.4-8.2)
--- NOTE | 2019-10-31 14:55 | PN ---
Teaching Attending Note Name of Resident: Armaan Kramer ATTENDING PHYSICIAN STATEMENT I saw and evaluated the patient. I reviewed the resident's note and discussed the case with the resident. I agree with the resident's findings and plan as documented. SUBJECTIVE: Tolerating regular diet. NPO after midnight. Planned for OR tomorrow for lap mikael OBJECTIVE: Last Vital Signs Temp Pulse Resp BP Pulse Ox 97.8 F 69 20 113/74 98 10/31/19 08:20 10/31/19 08:20 10/31/19 08:20 10/31/19 08:20 10/30/19 21:00 PE: per resident note Labs: reviewed Imaging Reviewed ASSESSMENT AND PLAN: Germaine Victor is a 39 year old female with no pmhx presents with c/o of generalized chest and upper back pain x 3 days. Found to have cholelithiasis with borderline cholecystitis. #Symptomatic Cholelithiasis -Agreeable to cholecystectomy, planned for Friday pending negative COVID test -pain control, fluids -AST decreasing -Regular diet. NPO after midnight DVTppx: pt ambulatory, low risk
--- NOTE | 2019-10-31 16:55 | PN ---
Physical Exam: SUBJECTIVE: Patient seen and examined. Asymptomatic and afebrile. No overnight event. scheduled surgery for saturday 10/21. OBJECTIVE: Vital Signs Period Temp Pulse Resp BP Sys/Mancilla Pulse Ox Last 24 Hr 97.7 F-98.3 F 63-76 - 103-117/60-74 98 GENERAL: The patient is awake, alert, and fully oriented, in mild distress EYES: PERRL, extraocular movements intact, No ptosis. ENT: moist mucous membranes. LUNGS: Breath sounds equal, clear to auscultation bilaterally, no wheezes, no crackles HEART: Regular rate and rhythm, S1, S2 without murmur, rub or gallop. ABDOMEN: soft, RUQ tenderness, guarding+, no rebound tenderness, BS decreased. Improved EXTREMITIES: 2+ pulses, warm, well-perfused, no edema. PSYCH: Normal mood, normal affect. SKIN: Warm, dry, normal turgor, Laboratory Results - last 24 hr 10/31/19 10/31/19 06:40 06:40 WBC 6.8 RBC 4.09 Hgb 12.2 Hct 35.6 MCV 87.2 MCH 29.7 MCHC 34.1 RDW 13.0 Plt Count 166 MPV 9.3 Absolute Neuts (auto) 3.9 Neutrophils % 56.7 Lymphocytes % 30.6 Monocytes % 8.1 Eosinophils % 4.2 Basophils % 0.4 Nucleated RBC % 0 Sodium 140 Potassium 3.8 Chloride 109 H Carbon Dioxide 25 Anion Gap 6 L BUN 9.9 Creatinine 0.6 Est GFR (CKD-EPI)AfAm 132.14 Est GFR (CKD-EPI)NonAf 114.01 Random Glucose 91 Calcium 8.1 L Phosphorus 3.7 Magnesium 2.2 Total Bilirubin 0.5 AST 22 ALT 74 H Alkaline Phosphatase 91 Total Protein 6.4 Albumin 3.2 L Active Medications Generic Name Dose Route Start Last Admin Trade Name Freq PRN Reason Stop Dose Admin Sodium Chloride 1,000 mls @ 75 mls/hr 10/28/19 19:45 10/31/19 06:06 Normal Saline - IV 75 mls/hr ASDIR HEIDY Administration Oxycodone HCl 5 mg 10/29/19 15:24 Roxicodone - PO Q6H PRN PAIN LEVEL 7 - 10 ASSESSMENT/PLAN: 39 y/o F, with no pmhx presents with c/o of generalized chest, abdominal and upper back pain x 3 days admitted for bilary colic #Biliary colic 2/2 to Cholelithiasis US: gallstones with 1.5 cm stone near the GB neck LFTs improving- stone likely passed Surgery consult- appreciate consult- tentative lap mikael surgery for Friday cont IVF pain mgt- oxy 5 q6 prn NPO midnight 10/31 Clear liquid diet for no Covid negative #Transaminitis due CBD LFTs improving US abd- fatty liver vs hepatocellular disease, Gallstone next to GB neck 1.5cm, bedside US showing CBD dilation of 4.5 mm #DVT ppx hold FEN monitor lytes IVF at 75 clear liquid diet, NPO after midnight on 10/31 Dispo: cont IVF, surgery for friday Visit type - Emergency Visit Emergency Visit: Yes ED Registration Date: 10/28/19 Care time: The patient presented to the Emergency Department on the above date and was hospitalized for further evaluation of their emergent condition. - New Patient This patient is new to me today: Yes Date on this admission: 11/01/19 - Critical Care Critical Care patient: No - Discharge Referral Referred to [facility] Med P.C.: No ATTENDING PHYSICIAN STATEMENT I saw and evaluated the patient. I reviewed the resident's note and discussed the case with the resident. I agree with the resident's findings and plan as documented. SUBJECTIVE: OBJECTIVE: ASSESSMENT AND PLAN:
[2019-11-01 08:11] LABS: HEMATOCRIT 34.7 % (32.4-45.2); HEMOGLOBIN 11.8 GM/dL (10.7-15.3); MCH 29.5 pg (25.7-33.7); MEAN CELL VOLUME 86.9 fl (80-96); MEAN PLT VOLUME 8.9 fl (7.5-11.1); PLATELET COUNT 182 K/MM3 (134-434); RBC 3.99 M/mm3 (3.60-5.2); RDW 13.2 % (11.6-15.6); WHITE BLOOD COUNT 6.1 K/mm3 (4.0-10.0)
[2019-11-01 08:33] LABS: ALBUMIN 3.3 g/dl (3.4-5.0); BILIRUBIN,TOTAL 0.5 mg/dL (0.2-1); BLOOD UREA NITROGEN 9.1 mg/dL (7-18); CALCIUM 7.4 mg/dL (8.5-10.1); CREATININE 0.6 mg/dL (0.55-1.3); MAGNESIUM 2.2 mg/dL (1.8-2.4); PHOSPHOROUS 3.8 mg/dL (2.5-4.9); POTASSIUM 3.9 mmol/L (3.5-5.1); TOT PROT 6.6 g/dl (6.4-8.2)
[2019-11-01] MEDS ORDERED: EPHEDRINE SULFATE/0.9% NACL/PF 50 MG/10 ML SYRINGE NR ONE (09:14)
[2019-11-01] MEDS ORDERED: MIDAZOLAM HCL 2 MG/2 ML SINGLE DOSE VIAL ONE (09:15)
[2019-11-01] MEDS ORDERED: ROCURONIUM BROMIDE 50 MG/5 ML SYRINGE ONE (09:15)
[2019-11-01] MEDS ORDERED: PROPOFOL 20 ML ONE ×2 (09:15→11:12)
[2019-11-01] MEDS ORDERED: SUCCINYLCHOLINE CHLORIDE 200 MG/10 ML SYRINGE ONE (09:15)
[2019-11-01] MEDS ORDERED: LIDOCAINE HCL/PF 2% SDV 5ML VIAL ONE ×2 (09:17→10:36)
[2019-11-01] MEDS ORDERED: ceFAZolin SODIUM 1 GM VIAL ONE ×2 (09:17→10:36)
[2019-11-01] MEDS ORDERED: SODIUM CHLORIDE 0.9% P/F 10 ML VIAL IJ ONE (09:17)
[2019-11-01] MEDS ORDERED: ceFAZolin SODIUM 1 GM VIAL IVPB ONE (10:01)
[2019-11-01] MEDS ORDERED: fentaNYL CITRATE 250 MCG/5 ML VIAL ONE (10:17)
[2019-11-01] MEDS ORDERED: DEXAMETHASONE SOD PHOSPHATE 4 MG/1 ML VIAL ONE (10:36)
[2019-11-01] MEDS ORDERED: LIDOCAINE HCL 2% JELLY (5 ML/TUBE) ONE (10:36)
[2019-11-01] MEDS ORDERED: GLYCOPYRROLATE 0.2 MG/1 ML VIAL ONE (10:36)
[2019-11-01] MEDS ORDERED: ONDANSETRON 4 MG/2 ML VIAL IVPUSH PRN ×2 (11:02→12:56)
[2019-11-01] MEDS ORDERED: HYDROmorphone HCl 2 MG/ML VIAL IVPUSH PRN (11:03)
[2019-11-01] MEDS ORDERED: NEOSTIGMINE METHYLSULFATE 0.5 MG/ML - 10 ML MDV ONE (11:04)
[2019-11-01] MEDS ORDERED: BUPIVACAINE HCL/PF 0.5% (5MG/ML) 10 ML VIAL IJ ONE ×2 (11:11)
[2019-11-01] MEDS ORDERED: LACTATED RINGERS SOLUTION 1,000 ML IV SCH ×2 (11:15→12:56)
--- NOTE | 2019-11-01 11:47 | OP ---
Operative Note - Note: Operative Date: 11/01/19 Pre-Operative Diagnosis: acute cholecsytitis/cholelithiasis Operation: laparoscopic cholecystectomy Findings: acute cholecystitis/cholelithiasis Post-Operative Diagnosis: Same as Pre-op Surgeon: David Maya Optical Glass Inspector: Reagan Maria Anesthesiologist/FIRE EXTINGUISHER MECHANIC: Layla Benedict Anesthesia: General Specimens Removed: gallbladder and contents Estimated Blood Loss (mls): 15
[2019-11-01] MEDS ORDERED: ACETAMINOPHEN 325 MG TABLET (FP) PO PRN ×2 (11:48→12:56)
[2019-11-01] MEDS ORDERED: HYDROmorphone HCl 2 MG/ML VIAL ONE (11:49)
[2019-11-01] MEDS: HYDROmorphone HCl 2 MG/ML VIAL IVPUSH PRN ×4 (11:53→12:48)
--- NOTE | 2019-11-01 11:58 | SURG ---
Surgery Asset Administrator Note Asset Administrator: Reagan Maria PA-C (Suzy) Date of Service: 11/01/19 Diagnosis: acute cholecsytitis/cholelithiasis Procedure: Operation: laparoscopic cholecystectomy I was present for the entirety of the operative procedure. For further detail, please refer to operative report. Visit type - Case Type Case Type: Scheduled - Emergency Emergency Visit: Yes ED Registration Date: 10/28/19 Care time: The patient presented to the Emergency Department on the above date and was hospitalized for further evaluation of their emergent condition. - New patient This patient is new to me today: Yes Date on this admission: 11/01/19 - Critical Care Critical Care patient: No
[2019-11-01] MEDS ORDERED: oxyCODONE HCL 5 MG TABLET PO PRN (12:56)
--- NOTE | 2019-11-01 15:23 | PN ---
Teaching Attending Note Name of Resident: Armaan Kramer ATTENDING PHYSICIAN STATEMENT I saw and evaluated the patient. I reviewed the resident's note and discussed the case with the resident. I agree with the resident's findings and plan as documented. SUBJECTIVE: Seen and examined at bedside prior to surgery. No complaints at that time. Si nce underwent successful lap cholecystectomy.Started on clears. If remains stable likely for discharge tomorrow. OBJECTIVE: Last Vital Signs Temp Pulse Resp BP Pulse Ox 97.8 F 69 20 113/74 98 10/31/19 08:20 10/31/19 08:20 10/31/19 08:20 10/31/19 08:20 10/30/19 21:00 PE: per resident note Labs: reviewed Imaging Reviewed ASSESSMENT AND PLAN: Germaine Victor is a 39 year old female with no pmhx presents with c/o of generalized chest and upper back pain x 3 days. Found to have cholelithiasis with borderline cholecystitis. #Symptomatic Cholelithiasis: Status post lap mikael on 11/01/2019 -clears -pain control, fluids -AST decreasing -clears tonight. Likely DC tomorrow if tolerates PO and cleared by surgery DVTppx: pt ambulatory, low risk Dispo: Likely DC tomorrow if tolerates PO and cleared by surgery
--- NOTE | 2019-11-01 18:12 | PN ---
Physical Exam: SUBJECTIVE: Patient seen and examined. Asymptomatic and afebrile. No overnight event. Pt s/p elective surgery. NPO and on IVF. OBJECTIVE: Vital Signs Period Temp Pulse Resp BP Sys/Mancilla Pulse Ox Last 24 Hr 97.7 F-98.4 F 57-98 16-20 110-136/47-79 98-100 GENERAL: The patient is awake, alert, and fully oriented, in mild distress EYES: PERRL, extraocular movements intact, No ptosis. ENT: moist mucous membranes. LUNGS: Breath sounds equal, clear to auscultation bilaterally, no wheezes, no crackles HEART: Regular rate and rhythm, S1, S2 without murmur, rub or gallop. ABDOMEN: soft, RUQ tenderness, s/p lap mikael EXTREMITIES: 2+ pulses, warm, well-perfused, no edema. PSYCH: Normal mood, normal affect. SKIN: Warm, dry, normal turgor, Laboratory Results - last 24 hr 11/01/19 11/01/19 05:52 05:52 WBC 6.1 RBC 3.99 Hgb 11.8 Hct 34.7 MCV 86.9 MCH 29.5 MCHC 34.0 RDW 13.2 Plt Count 182 MPV 8.9 Sodium 140 Potassium 3.9 Chloride 108 H Carbon Dioxide 27 Anion Gap 6 L BUN 9.1 Creatinine 0.6 Est GFR (CKD-EPI)AfAm 132.14 Est GFR (CKD-EPI)NonAf 114.01 Random Glucose 98 Calcium 7.4 L Phosphorus 3.8 Magnesium 2.2 Total Bilirubin 0.5 AST 21 ALT 64 H Alkaline Phosphatase 88 Total Protein 6.6 Albumin 3.3 L Active Medications Generic Name Dose Route Start Last Admin Trade Name Freq PRN Reason Stop Dose Admin Acetaminophen 650 mg 11/01/19 12:56 Tylenol - PO Q4H PRN PAIN LEVEL 1-5 Lactated Ringer's 1,000 mls @ 75 mls/hr 11/01/19 12:56 11/01/19 13:10 Lactated Ringers Solution IV Not Given ASDIR HEIDY Ondansetron HCl 4 mg 11/01/19 12:56 Zofran Injection IVPUSH 11/02/19 11:01 Q6H PRN NAUSEA AND/OR VOMITING Oxycodone HCl 5 mg 11/01/19 12:56 Roxicodone - PO Q6H PRN PAIN LEVEL 7 - 10 ASSESSMENT/PLAN: 39 y/o F, with no pmhx presents with c/o of generalized chest, abdominal and upper back pain x 3 days admitted for bilary colic #Biliary colic 2/2 to Cholelithiasis S/p Lap cholecystectomy US: gallstones with 1.5 cm stone near the GB neck LFTs improving- stone likely passed Surgery following- appreciate cont LR 75 pain mgt- oxy 5 q6 prn advance diet to clears and then regular for lunch, as per surgery Covid negative Zofran for nausea #Transaminitis due CBD LFTs improving US abd- fatty liver vs hepatocellular disease, Gallstone next to GB neck 1.5cm, bedside US showing CBD dilation of 4.5 mm #DVT ppx hold FEN monitor lytes IVF at 75 clear liquid diet Dispo: cont IVF, s/p surgery, surgery acceptable to d/c planning, d/c tomorrow afternoon after lunch Visit type - Emergency Visit Emergency Visit: Yes ED Registration Date: 10/28/19 Care time: The patient presented to the Emergency Department on the above date and was hospitalized for further evaluation of their emergent condition. - New Patient This patient is new to me today: Yes Date on this admission: 11/01/19 - Critical Care Critical Care patient: No - Discharge Referral Referred to [facility] Med P.C.: No ATTENDING PHYSICIAN STATEMENT I saw and evaluated the patient. I reviewed the resident's note and discussed the case with the resident. I agree with the resident's findings and plan as documented. SUBJECTIVE: OBJECTIVE: ASSESSMENT AND PLAN:
--- NOTE | 2019-11-01 21:22 | OP ---
DATE OF OPERATION: 11/01/2019 PREOPERATIVE DIAGNOSIS: Acute cholecystitis and cholelithiasis. PREOPERATIVE DIAGNOSIS: Acute cholecystitis and cholelithiasis. PROCEDURE: Laparoscopic cholecystectomy. SURGEON: David Maya MD GANG TAILER: Reagan Maria PA-C ANESTHESIA: General. OPERATIVE FINDINGS: Acute cholecystitis and cholelithiasis. The rest of the findings were unremarkable. DESCRIPTION OF PROCEDURE: The patient was placed on the operating room table in supine position. After the induction of general anesthesia, the patient's abdomen was prepped with ChloraPrep and draped in sterile fashion. Time-out was taken and then pneumoperitoneum established above the umbilicus using a Veress needle. Once 15 mm of intra-abdominal pressure was obtained, a 5-mm port was placed at the umbilicus. Additional lateral 5-mm ports and a subxiphoid 12-mm port were placed and laparoscopy carried out, and the previously noted findings were observed. The gallbladder was placed on cephalad and lateral traction, and dissection was begun at the neck of the gallbladder where the peritoneum was opened medially and laterally using blunt and sharp dissection and electrocautery. Dissection continued in the triangle of Calot where the cystic duct was identified coursing from the neck of the gallbladder distally to the common bile duct. It was dissected proximally and distally for length. The artery and its branches which were present were similarly identified and dissected. A critical view of safety was taken, and then the cystic duct divided proximally and distally using Endo Torri after it was clipped twice proximally and distally with large hemoclips. The artery and its branches were similarly clipped and divided. Hemostasis was checked for and noted to be good and then the gallbladder was removed from the liver bed in a retrograde fashion using electrocautery. Prior to removal from the edge of the liver, hemostasis was again verified and then the gallbladder removed from the edge of the liver, placed in an EndoCatch, and brought out through the subxiphoid port. Pneumoperitoneum was reestablished, hemostasis verified again, and then the 5-mm lateral and subxiphoid ports were removed under laparoscopic vision without evidence of bleeding from the port sites. The umbilical port was removed and the pneumoperitoneum evacuated. All port sites were infiltrated with 0.5% Marcaine and the skin edges closed with 4-0 Biosyn in a subcuticular and continuous fashion. Steri-Strips and Band-Aid dressings were placed and the procedure terminated at this point and the patient aroused from general anesthesia and transferred to the post anesthesia care unit in stable condition awake and alert. ESTIMATED BLOOD LOSS: 15 mL. REPLACEMENTS: Crystalloid. DRAINS: None. SPECIMENS: Gallbladder and contents to pathology. I, David Maya, was physically present in the operating room from the time the patient was placed on the operating room table until she was transferred to the post anesthesia care unit in [place]. MD JUJU [id number] MTDD
[2019-11-02 08:03] LABS: BASO % 0.4 % (0-2.0); EOS % 0.7 % (0-4.5); HEMATOCRIT 34.3 % (32.4-45.2); HEMOGLOBIN 11.8 GM/dL (10.7-15.3); MCH 29.9 pg (25.7-33.7); MCHC 34.6 g/dl (32.0-36.0); MEAN CELL VOLUME 86.6 fl (80-96); MEAN PLT VOLUME 9.1 fl (7.5-11.1); MONO % 7.5 % (3.8-10.2); NEUT % 68.4 % (42.8-82.8); PLATELET COUNT 201 K/MM3 (134-434); RBC 3.96 M/mm3 (3.60-5.2); RDW 12.8 % (11.6-15.6); WHITE BLOOD COUNT 10.2 K/mm3 (4.0-10.0)
[2019-11-02 08:29] LABS: ALBUMIN 3.2 g/dl (3.4-5.0); BILIRUBIN,TOTAL 0.5 mg/dL (0.2-1); BLOOD UREA NITROGEN 8.6 mg/dL (7-18); CALCIUM 8.8 mg/dL (8.5-10.1); CREATININE 0.7 mg/dL (0.55-1.3); PHOSPHOROUS 3.7 mg/dL (2.5-4.9); POTASSIUM 3.8 mmol/L (3.5-5.1); TOT PROT 6.7 g/dl (6.4-8.2)
--- NOTE | 2019-11-02 10:43 | PATH ---
Surgical Pathology Report Patient Name: THIAGO KRUGER Med. Rec. #: [id number] /Age/Gender: 1980 (Age: 39) / F Account: [id number] Location: [facility] MED/SURG Taken: 11/01/2019 Received: 11/01/2019 Reported: 11/02/2019 Physicians: David Maya MD Specimen(s) Received GALLBLADDER Clinical History Acute cholecystitis/cholelithiasis Final Diagnosis GALLBLADDER, LAPAROSCOPIC CHOLECYSTECTOMY: CHRONIC CHOLECYSTITIS, CHOLESTEROLOSIS, AND CHOLELITHIASIS. ONE BENIGN PERIDUCTAL LYMPH NODE (0/1). Electronically Signed Anna Guzman M.D. Gross Description Received in formalin, labeled "gallbladder," is a 9.8 x 3.0 x 3.0 cm. gallbladder with a 0.2 cm. in length portion of cystic duct attached. There is a 0.9 cm in greatest dimension salcido-pink periductal lymph node present. The outer surface is salcido-pink and varies from smooth to shaggy. The lumen contains green, tenacious bile as well as a 2.7 cm in greatest dimension green-yellow, ovoid cholelith. The mucosa is green with gold cholesterol stippling. The wall of the gallbladder measures 0.1 cm. in thickness. Life Skills Coordinator Volunteer sections are submitted in one cassette. /11/01/2019 [facility]11/01/2019
--- NOTE | 2019-11-02 11:21 | PN ---
Progress Note (short form) - Note Progress Note: POD 1, s/p lap mikael Pt seen and examined. Reports some abdominal pain with movement. No n/v/d. No issues overnight. Tolerated clears yesterday. Vital Signs Temp 98.4 F 11/02/19 07:41 Pulse 55 L 11/02/19 07:41 Resp 20 11/02/19 07:41 BP 107/68 11/02/19 07:41 Pulse Ox 99 11/01/19 21:00 Intake & Output 11/01/19 11/01/19 11/02/19 11:59 23:59 11:59 Intake Total 1600 900 900 Output Total 15 300 Balance 1585 900 600 Intake: IV 1600 900 900 Lactated Ringers Solution 150 900 1,000 ml @ 75 mls/hr IV ASDIR HEIDY Rx#:[id number] Normal Saline - 1,000 ml 600 150 @ 75 mls/hr IV ASDIR HEIDY Rx#:[id number] Output: Urine 300 Void 300 Estimated Blood Loss 15 Other: Voiding Method Toilet Toilet # Unmeasured Voids Void 1 1 Bowel Movement No CBC, BMP 11/02/19 06:25 11/02/19 06:25 Gen: awake, alert, nad Resp: unlabored on RA Abdo: soft, minimal ttp in ruq, bandages in place, c/d/i no ecchymosis. A/P: 39 y/o F w/ PMHx obesity a/w biliary colic found to have acute cholecystitis, now POD 1 s/p lap mikael. afebrile, vss labs states -Continue to advance diet, if pt tolerating may be discharged with f.u in the office in 7-10 days. d/w attending Dr Maya
[2019-11-02 14:00] VITALS: BP 117/69; PULSE 74; TEMP 98.3
--- NOTE | 2019-11-02 14:36 | PN ---
Progress Note (short form) - Note Progress Note: 39 F s/p GA. pt doing well w/o complaints. good result of anesthetic care.
--- NOTE | 2019-11-02 14:36 | DS ---
Physical Exam: SUBJECTIVE: Patient seen and examined. States she is feeling well. Denies nausea, vomiting, pain. OBJECTIVE: Vital Signs Period Temp Pulse Resp BP Sys/[place] Pulse Ox Last 24 Hr 97.8 F-98.6 F 55-98 18-20 104-120/61-75 99-99 PHYSICAL EXAM GENERAL: The patient is awake, alert, and fully oriented, in no acute distress. HEAD: Normal with no signs of trauma. EYES: EOMI ENT: MMM NECK: Trachea midline, full range of motion, supple. LUNGS: CTA B/L HEART: RRR ABDOMEN: surgical sites clean, dry, intact. minimal tenderness to palpation EXTREMITIES: 2+ pulses, warm, well-perfused, no edema. NEUROLOGICAL: Normal speech, gait not observed. PSYCH: Normal mood, normal affect. SKIN: Warm, dry, normal turgor LABS Laboratory Results - last 24 hr 11/02/19 11/02/19 06:25 06:25 WBC 10.2 H RBC 3.96 Hgb 11.8 Hct 34.3 MCV 86.6 MCH 29.9 MCHC 34.6 RDW 12.8 Plt Count 201 MPV 9.1 Absolute Neuts (auto) 7.0 Neutrophils % 68.4 D Lymphocytes % 23.0 D Monocytes % 7.5 Eosinophils % 0.7 D Basophils % 0.4 Nucleated RBC % 0 Sodium 139 Potassium 3.8 Chloride 105 Carbon Dioxide 30 Anion Gap 4 L BUN 8.6 Creatinine 0.7 Est GFR (CKD-EPI)AfAm 125.61 Est GFR (CKD-EPI)NonAf 108.38 Random Glucose 93 Calcium 8.8 Phosphorus 3.7 Magnesium 2.0 Total Bilirubin 0.5 AST 30 ALT 62 H Alkaline Phosphatase 86 Total Protein 6.7 Albumin 3.2 L HOSPITAL COURSE: Date of Admission:10/28/19 Date of Discharge: 11/02/19 39 y/o/f without significant PMHx presented with c/o of generalized chest, abdom inal and upper back pain for 3 days admitted for biliary colic. Ultrasound was performed which showed gallstones and fatty liver vs hepatocellular disease and CBD dilation of 4.5mm. Abd pain 2/2 cholelithiasis. Patient had laproscopic cholecystectomy performed with improvement of symptoms. Patient had elevated LFTs which improved during admission, likely 2/2 to passed stone. Patient tested negative for COVID. Patient tolerated diet well today. Stable for discharge home at this time. Patient to follow up with Dr. Maya, surgery in 7-10 days after discharge . Minutes to complete discharge: 36 Discharge Summary Problems reviewed: Yes Reason For Visit: BILIARY TRACT OBSTRUCTION ABDOMINAL PAIN Current Active Problems Abdominal pain (Acute) Cholelithiasis (Acute) Condition: Good - Instructions Diet, Activity, Other Instructions: You presented to the hospital due to abdominal pain. You had imaging completed which showed that your pain was caused by a gallstone in your gallbladder. You had surgery performed to remove your gallbladder. Please follow up with Dr. Maya in 7-10 days in his office. Please return to the ER if you have any signs or symptoms of chest pain, shortness of breath, uncontrollable fever, chills, nausea, vomiting, numbness, tingling, or weakness in any part of your body, changes in vision, or slurred speech. Please return to the ER if symptoms persist, worsen, or new symptoms arise. Dr. Maya Discharge Instructions Dear THIAGO KRUGER, Post Operative Instructions Physical activity Resume your normal everyday activity as tolerated no heavy lifting or exercise until seen by your surgeon. You may walk unlimited amounts of and climb stairs. You may resume driving the car when you feel safe and comfortable behind the wheel. Wound care If you have a bandage, leave it on, and keep dry for 48 - 72 hours. After that time discard the outer bandage. If there are tapes on the skin under the outer bandage, leave them in place. They will peel off in the next 7 to 10 days. Do Not peel them off. You may shower 2 days after surgery. If there are tapes present on the skin, they can get wet. Diet There are no dietary restrictions. Eat healthy, high-fiber foods. Drink 6 to 8 glasses of liquid each day. This will assist in keeping your bowels are regular. Pain management You may take Tylenol or acetaminophen or Ibuprofen (for example, Motrin, Advil etc.) Any pain prescription medication ordered should be taken as prescribed for moderate to severe pain. Call Dr. Maya for any of the following: Severe pain not relieved by medication Fever of 101 or higher Excessive bleeding or drainage on dressing Inability to urinate Call the office at [phone] for a post operative appointment in 7 - 10 days. Usted se present en el hospital debido a dolor abdominal. Le hicieron bertha imagen que mostr que de la cruz dolor fue causado por un clculo biliar en de la cruz vescula biliar. Le hicieron bertha ciruga para extirparle la vescula biliar. [place] un seguimiento con el Dr. Maya en 7-10 wilson en de la cruz oficina. Regrese a la niko de emergencias si tiene signos o sntomas de dolor en el pecho, falta de aliento, fiebre incontrolable, escalofros, nuseas, vmitos, entumecimiento, hormigueo o debilidad en alguna parte de de la cruz cuerpo, cambios en la visin o dificultad para hablar. Regrese a la niko de emergencias si los sntomas persisten, empeoran o surgen nuevos sntomas. Dr. Maya Instrucciones de estela Estimado DELCY KRUGER, Instrucciones postoperatorias Actividad fsica Reanude de la cruz actividad diaria normal segn lo tolerado, sin levantar objetos pesados ??o hacer ejercicio hasta que lo panchito de la cruz cirujano. Puede caminar cantidades ilimitadas y subir escaleras. Puede reanudar la conduccin del automvil cuando se sienta seguro y cmodo al volante. Cuidado de heridas Si tiene un vendaje, djelo puesto y mantngalo seco tatyana 48 a 72 horas. Despus de priya tiempo, deseche el vendaje externo. Si hay cintas en la piel debajo del vendaje exterior, djelas en de la cruz lugar. Se despegarn en los prximos 7 a 10 wilson. No los despegues. Puede ducharse 2 wilson despus de la ciruga. Si hay cintas presentes en la piel, pueden mojarse. Dieta No hay restricciones dietticas. Coma alimentos saludables con alto contenido de fibra. Jaylin de 6 a 8 vasos de lquido al da. [place] ayudar a mantener madison intestinos regulares. El manejo del dolor Puede fabricio Tylenol o acetaminofeno o Ibuprofeno (por ejemplo, Motrin, Advil, etc.) Cualquier medicamento recetado para el dolor que se pida debe tomarse segn lo prescrito para el dolor moderado a intenso. Llame al Dr. Maya por cualquiera de los siguientes: Dolor intenso no aliviado con medicamentos. Fiebre de 101 o ms Sangrado excesivo o drenaje en el apsito [place] para orinar Llame a la oficina al [phone] para bertha irving postoperatoria en 7 a 10 wilson. Referrals: David Maya MD [Staff Physician] - 1 Week Disposition: HOME - Home Medications Comprehensive Discharge Medication List: Ambulatory Orders Vitamins (Sjr) - 1 tab PO DAILY 09/23/14 Acetaminophen [Tylenol .Regular Strength -] 650 mg PO Q4H PRN #20 tablet 09/28/14 Ibuprofen [Motrin -] 600 mg PO Q4H PRN #20 tablet 09/28/14 This patient is new to me today: Yes Date on this admission: 11/02/19 Emergency Visit: Yes ED Registration Date: 10/28/19 Care time: The patient presented to the Emergency Department on the above date and was hospitalized for further evaluation of their emergent condition. Critical Care patient: No - Discharge Referral Referred to [facility] No ATTENDING PHYSICIAN STATEMENT I saw and evaluated the patient. I reviewed the resident's note and discussed the case with the resident. I agree with the resident's findings and plan as documented. SUBJECTIVE: OBJECTIVE: ASSESSMENT AND PLAN:
--- NOTE | 2019-11-02 17:49 | PN ---
Teaching Attending Note Name of Resident: Radha Gamboa ATTENDING PHYSICIAN STATEMENT I saw and evaluated the patient. I reviewed the resident's note and discussed the case with the resident. I agree with the resident's findings and plan as documented. SUBJECTIVE: Feeling better, tolerating oral intake. no fever/chills. No nausea/vomiting. OBJECTIVE: Afebrile, Hemodynamically stable. Last Vital Signs Temp Pulse Resp BP Pulse Ox 98.3 F 74 18 117/69 99 11/02/19 14:00 11/02/19 14:00 11/02/19 14:00 11/02/19 14:00 11/02/19 09:00 HEENT - Atraumatic, Normocephalic. Heart - S1, S2, RRR Lungs - clear to auscultation Abdomen - Trochar sites clean, soft, mild generalized tenderness. Bowel Sounds normal. Extremities - no calf tenderness Neuro - AAO x 3. Tone/Power normal all extremities. Laboratory Results - last 24 hr 11/02/19 11/02/19 06:25 06:25 WBC 10.2 H RBC 3.96 Hgb 11.8 Hct 34.3 MCV 86.6 MCH 29.9 MCHC 34.6 RDW 12.8 Plt Count 201 MPV 9.1 Absolute Neuts (auto) 7.0 Neutrophils % 68.4 D Lymphocytes % 23.0 D Monocytes % 7.5 Eosinophils % 0.7 D Basophils % 0.4 Nucleated RBC % 0 Sodium 139 Potassium 3.8 Chloride 105 Carbon Dioxide 30 Anion Gap 4 L BUN 8.6 Creatinine 0.7 Est GFR (CKD-EPI)AfAm 125.61 Est GFR (CKD-EPI)NonAf 108.38 Random Glucose 93 Calcium 8.8 Phosphorus 3.7 Magnesium 2.0 Total Bilirubin 0.5 AST 30 ALT 62 H Alkaline Phosphatase 86 Total Protein 6.7 Albumin 3.2 L Home Medications Medication Instructions Recorded Vitamins (Sjr) - 1 tab PO DAILY 09/23/14 Acetaminophen [Tylenol .Regular 650 mg PO Q4H PRN #20 tablet 09/28/14 Strength -] Ibuprofen [Motrin -] 600 mg PO Q4H PRN #20 tablet 09/28/14 ASSESSMENT AND PLAN: 39 year old female with no significant past medical history presents with c/o of generalized chest and upper back pain x 3 days, found to have cholelithiasis with possible cholecystitis. 1. Biliary colic/Cholelithiasis s/p lap mikael on 11/01/2019 Tolerating oral intake. LFTs improved Medically optimized for discharge Surgery follow up as out-patient.
== END 2019-11-02 15:59 | disposition home or self-care (01) | DRG 263 ==
LOC: JER 16:43 → JERBED 19:51 → J8W 10-29 01:41
PROVIDERS: ADMIT Internal Medicine
PROC: 0FT44ZZ Resection of Gallbladder, Percutaneous Endoscopic Approach (ICD-10-PCS; principal; 2019-10-28)
DX: K80.00 Calculus of gallbladder with acute cholecystitis without obstruction (principal); K76.0 Fatty (change of) liver, not elsewhere classified; R74.0 Nonspecific elevation of levels of transaminase and lactic acid dehydrogenase [LDH]
CPT/HCPCS: 36415; 71045-TC-FY; 76705-TC; 80053; 80076; 83690; 83735; 84100; 84702; 85025; 85027; 85610; 88304-TC; 93005; 93010; 94760; 99285-25; G0008; Q2036; U0003